=== PATIENT | female | born 1985 | race Caucasian/White ===

== ENCOUNTER 2020-09-04 11:22 | Inpatient (IN) | payer BC ==
[2020-09-04] MEDS ORDERED: Lidocaine 1% 50 ML MDV INJECT PRN (11:34)
[2020-09-04] MEDS ORDERED: Butorphanol 1 MG/ML SDV IVPUSH PRN (11:34)
[2020-09-04] MEDS ORDERED: Ondansetron 4 MG/2 ML SDV IVPUSH PRN (11:34)
[2020-09-04] MEDS ORDERED: Ampicillin 2 GM in Sodium Chloride 0.9% 100 ML IV ONE (11:34)
[2020-09-04] MEDS ORDERED: Sodium Chloride 0.9% 2.5 ML Syringe FLUSH PRN (11:34)
[2020-09-04] MEDS ORDERED: Sodium Chloride 0.9% 10 ML SDV IV PRN (11:34)
[2020-09-04] MEDS ORDERED: Misoprostol 200 MCG Tab PO PRN (11:34)
[2020-09-04] MEDS ORDERED: Water For Irrigation,Sterile 1,000 ML Container IRR PRN (11:34)
[2020-09-04] MEDS ORDERED: Methylergonovine 0.2 MG/1 ML Amp IM PRN (11:34)
[2020-09-04] MEDS ORDERED: Tranexamic Acid 1,000 MG in Sodium Chloride 0.9% 100 ML IV PRN (11:34)
[2020-09-04] MEDS ORDERED: Carboprost Tromethamine 250 MCG/1 ML Amp IM PRN (11:34)
[2020-09-04] MEDS ORDERED: Sodium Chloride 0.9% 10 ML Syringe FLUSH PRN (11:34)
[2020-09-04] MEDS ORDERED: Misoprostol 25 MCG (1/4 of 100 MCG) Tab VAG PRN (11:38)
[2020-09-04] MEDS ORDERED: Terbutaline 1 MG/ML SDV SUBCUT PRN (11:38)
[2020-09-04] MEDS ORDERED: Oxytocin/0.9 % Sodium Chloride 30 UNIT/500 ML BAG IV SCH ×2 (11:45)
[2020-09-04] MEDS ORDERED: Lactated Ringers 1,000 ML IV SCH (11:45)
[2020-09-04] MEDS: Ampicillin 1 GM in Sodium Chloride 0.9% 50 ML IV STA ×2 (17:02→17:10)
[2020-09-04] MEDS ORDERED: Ampicillin 1 GM in Sodium Chloride 0.9% 50 ML IV SCH (17:15)
[2020-09-04] MEDS ORDERED: Bupivicaine/fentaNYL/NS 0 ML ONE (17:59)
[2020-09-04] MEDS ORDERED: Ropivacaine 0.2% PF 2 MG/ML 20 ML SDV ONE (17:59)
--- NOTE | 2020-09-04 18:24 | PCM.PREANE ---
Preanesthetic Assessment - Procedure Proposed Procedure: labor epidural - Anesthesia/Transfusion/Family Hx Anesthesia History: Prior Anesthesia Without Reaction Family History of Anesthesia Reaction: No Transfusion History: No Prior Transfusion(s) - Review of Systems General: No Symptoms Pulmonary: No Symptoms Cardiovascular: No Symptoms Gastrointestinal: No Symptoms Neurological: No Symptoms Other: Reports: None - Physical Assessment Height: 5 ft 10 in Weight: 83.915 kg ASA Class: 2 Mental Status: Alert & Oriented x3 Airway Class: Mallampati = 1 Dentition: Reports: Normal Dentition Thyro-Mental Finger Breadths: 3 Mouth Opening Finger Breadths: 3 ROM/Head Extension: Full Lungs: Clear to Auscultation, Normal Respiratory Effort Cardiovascular: Regular Rate, Regular Rhythm - Lab Values: Laboratory Last Values WBC 11.22 K/uL (4.0-11.0) H 09/04/20 12:10 RBC 4.23 M/uL (4.30-5.90) L 09/04/20 12:10 Hgb 13.0 g/dL (12.0-16.0) 09/04/20 12:10 Hct 38.3 % (36.0-46.0) 09/04/20 12:10 MCV 90.5 fL (80.0-98.0) 09/04/20 12:10 MCH 30.7 pg (27.0-32.0) 09/04/20 12:10 MCHC 33.9 g/dL (31.0-37.0) 09/04/20 12:10 RDW Std Deviation 42.5 fl (28.0-62.0) 09/04/20 12:10 RDW Coeff of [place] 13 % (11.0-15.0) 09/04/20 12:10 Plt Count 216 K/uL (150-400) 09/04/20 12:10 MPV 11.10 fL (7.40-12.00) 09/04/20 12:10 Nucleated RBC % 0.0 /100WBC 09/04/20 12:10 Nucleated RBCs # 0 K/uL 09/04/20 12:10 Blood Type O POSITIVE 09/04/20 12:10 Antibody Screen NEGATIVE 09/04/20 12:10 - Allergies Allergies/Adverse Reactions: Allergies Allergy/AdvReac Type Severity Reaction Status Date / Time erythromycin base Allergy Unknown Other Verified 09/04/20 11:32 - Blood Blood Available: Yes Product(s) Available: PRBC - Anesthesia Plan Pre-Op Medication Ordered: None - Acknowledgements Anesthesia Type Planned: Epidural Pt an Appropriate Candidate for the Planned Anesthesia: Yes Alternatives and Risks of Anesthesia Discussed w Pt/Guardian: Yes Pt/Guardian Understands and Agrees with Anesthesia Plan: Yes PreAnesthesia Questionnaire - Past Health History Medical/Surgical History: Denies Medical/Surgical History Other OB/BYN History: Leep; D&C - Infectious Disease History Infectious Disease History: Reports: Human Papilloma Virus (HPV) - SUBSTANCE USE Tobacco Use Status *Q: Never Tobacco User Second Hand Smoke Exposure: No Recreational Drug Use History: No - CURRENT (IN HOUSE) MEDS Current Meds: Current Medications Butorphanol Tartrate (Stadol) 1 mg IVPUSH Q1H PRN PRN Reason: Pain Last Admin: 09/04/20 16:42 Dose: 1 mg Documented by: Carboprost Tromethamine (Hemabate Ds) 250 mcg IM ASDIRECTED PRN PRN Reason: Post Hemorrhage Oxytocin/Sodium Chloride (Oxytocin 30 Unit/500 Ml-Ns) 30 unit in 500 mls @ 999 mls/hr IV TITRATE ALMITA Tranexamic Acid 1,000 mg/ (Sodium Chloride) 110 mls @ 660 mls/hr IV ONETIME PRN PRN Reason: Bleeding Lactated Ringer's (Ringers, Lactated) 1,000 mls @ 150 mls/hr IV ASDIRECTED ALIMTA Last Admin: 09/04/20 12:32 Dose: 150 mls/hr Documented by: Oxytocin/Sodium Chloride (Oxytocin 30 Unit/500 Ml-Ns) 30 unit in 500 mls @ 2 mls/hr IV TITRATE ALMITA; Protocol Last Titration: 09/04/20 17:42 Dose: 1 munits/min, 1 mls/hr Documented by: Ampicillin Sodium 1 gm/ Sodium (Chloride) 50 mls @ 100 mls/hr IV Q4H ALMITA Lidocaine HCl (Xylocaine 1%) 50 ml INJECT ONETIME PRN PRN Reason: Laceration repair Methylergonovine Maleate (Methergine) 0.2 mg IM ASDIRECTED PRN PRN Reason: Post Hemorrhage Misoprostol (Cytotec) 200 mcg PO ONETIME PRN PRN Reason: Post Hemorrhage Misoprostol (Cytotec) 25 mcg VAG ONETIME PRN PRN Reason: Cervical Ripening Last Admin: 09/04/20 12:32 Dose: 25 mcg Documented by: Ondansetron HCl (Zofran) 4 mg IVPUSH Q4H PRN PRN Reason: Nausea/Vomiting Sodium Chloride (Saline Flush) 10 ml FLUSH ASDIRECTED PRN PRN Reason: Keep Vein Open Sodium Chloride (Saline Flush) 2.5 ml FLUSH ASDIRECTED PRN PRN Reason: Keep Vein Open Sodium Chloride (Normal Saline) 10 ml IV ASDIRECTED PRN PRN Reason: IV Use Sterile Water (Sterile Water For Irrigation) 1,000 ml IRR ASDIRECTED PRN PRN Reason: delivery Terbutaline Sulfate (Brethine) 0.25 mg SUBCUT ASDIRECTED PRN PRN Reason: Tacysystole Discontinued Medications Ampicillin Sodium 2 gm/ Sodium (Chloride) 100 mls @ 200 mls/hr IV ONETIME ONE Stop: 09/04/20 12:03 Last Admin: 09/04/20 12:32 Dose: 200 mls/hr Documented by: Ampicillin Sodium 1 gm/ Sodium (Chloride) 50 mls @ 100 mls/hr IV Q4H STA Stop: 09/04/20 17:11 Last Admin: 09/04/20 17:10 Dose: 100 mls/hr Documented by: Fentanyl/Bupivacaine HCl (Fentanyl/Bupivacaine/Ns 2 Mcg-0.125% 250 Ml) Confirm Administered Dose 250 mls @ as directed .ROUTE .STK-MED ONE Stop: 09/04/20 18:00 Ropivacaine (Naropin 0.2%) Confirm Administered Dose 20 ml .ROUTE .STK-MED ONE Stop: 09/04/20 18:00
[2020-09-04] MEDS ORDERED: Ibuprofen 400 MG Tab PO PRN (20:03)
[2020-09-04] MEDS ORDERED: Lanolin 100% Cream 7 GM Tube TOP PRN (20:03)
[2020-09-04] MEDS ORDERED: Witch Hazel Medicated Pads 40/Jar TOP PRN (20:03)
[2020-09-04] MEDS ORDERED: Bisacodyl 10 MG Supp RECTAL PRN (20:03)
[2020-09-04] MEDS ORDERED: Acetaminophen 500 MG Tab PO PRN ×2 (20:03)
[2020-09-04] MEDS ORDERED: Docusate Sodium 100 MG Cap PO PRN (20:03)
[2020-09-04] MEDS ORDERED: Benzocaine/Menthol 20%-0.5% Spray 78 GM Cannister TOP PRN (20:03)
[2020-09-04] MEDS ORDERED: oxyCODONE 5 MG Tab PO PRN (20:03)
--- NOTE | 2020-09-04 20:11 | PCM.OPNOTE ---
- General Post-Op/Procedure Note Date of Surgery/Procedure: 09/04/20 Operative Procedure(s): /1st degree labial laceration repaired Findings: Viable female APGARs 8, 9 weight 3020 gm. Spontaneous delivery intact placenta with 3V cord Pre Op Diagnosis: 40 week IUP. IUGR symmetrical Post-Op Diagnosis: Same Anesthesia Technique: Epidural Primary Surgeon: Christen Watters EBL in mLs: 250 Complications: none known Condition: Good Free Text/Narrative:: Intake & Output Dictation [id number] 09/04/20 09/04/20 09/04/20 06:59 14:59 22:59 Intake Total 100 2050 Balance 100 2049
--- NOTE | 2020-09-04 21:03 | OR ---
SURGEON: Christen Watters M.D. DATE OF PROCEDURE: 09/04/2020 PREOPERATIVE DIAGNOSES: 1. Forty-week intrauterine . 2. Symmetrical intrauterine growth restriction. POSTOPERATIVE DIAGNOSES: 1. Forty-week intrauterine . 2. Symmetrical intrauterine growth restriction. PROCEDURES: 1. Spontaneous vaginal delivery. 2. First-degree labial laceration repair. PRIMARY SURGEON: Christen Watters M.D. ANESTHESIA: Epidural. ESTIMATED BLOOD LOSS: 200 mL. FINDINGS: Viable female. scores 8 at one minute and 9 at five minutes. Weight of 3020 g. Spontaneous delivery, intact placenta, 3-vessel cord. DISPOSITION: Infant to nursery, and mom in [facility]. PROCEDURE IN DETAIL: Ying is a 35-year-old, G1, P0, at 40 weeks gestational age, who was admitted on the early afternoon of 08/2020 for scheduled induction of labor due to suspected symmetrical intrauterine growth restriction. She is group B beta strep positive. Therefore, she was admitted and routine labs were drawn. IV hydration was initiated. COVID is negative. Group B beta strep prophylaxis was initiated. The patient underwent Cytotec ripening, and within a couple of hours of receiving the first dose, a cervical balloon was also placed as she has had a history of LEEP to help reduce the scar tissue along the cervical os. The patient responded nicely to this, and with the next hour she had spontaneous rupture of membranes, clear fluid was noted, and became increasingly uncomfortable with contractions. She underwent Pitocin augmentation, never received more than 2 milliunits, and continued to progress more rapidly thereafter. She extruded the balloon, was found to be 3 cm and 90% effaced, and -2 station. Within the next couple of hours, she was feeling increasing pressure and discomfort after undergoing an epidural, and on examination was found to be complete 100% effaced, 0 station. Began pushing efforts. Pushed readily for the next approximately 20 minutes, was able to deliver the head to a +3 station. I was called for delivery. Upon my arrival, the patient was placed in modified dorsal lithotomy position, prepped and draped in the usual aseptic manner. Continued with pushing efforts, was able to satisfactorily push and deliver 's head atraumatically spontaneously, followed by anterior shoulder, posterior shoulder, and remainder of the body without difficulty. The 's oropharynx and nares were bulb suctioned. The infant was crying vigorously with good tone. She was handed off to her mother with attending nursing staff at nursing staff at her side. After delayed cord was clamped x2 and cut, cord arterial, cord venous, cord blood sampling was obtained light pressure was applied, while the placenta was delivered spontaneously intact. Vigorous fundal uterine massage was then applied while 30 units Pitocin was delivered in 500 mL of fluid. Upon inspection of cervix, vaginal sidewall, and perineum, there was found to bilateral first-degree labial laceration, repaired using 3-0 Vicryl in a continuous running fashion. Hemostasis appeared evident. Uterus remained firm. Sponge count, instrument count, needle count was correct. The patient will remain in LDRP, and infant nursery. FANTA BURT /[id number]
[2020-09-04] MEDS: Ibuprofen 800 MG Tab PO PRN (22:16)
[2020-09-05] MEDS: Ibuprofen 800 MG Tab PO PRN ×3 (07:03→22:20)
--- NOTE | 2020-09-05 10:38 | PCM.PNPP ---
- General Info Date of Service: 09/05/20 Subjective Update: Patient doing. Cramping pain intermittently, responds to Ibuprofen. Functional Status: Reports: Pain Controlled, Tolerating Diet, Ambulating, Urinating - Review of Systems General: Reports: No Symptoms HEENT: Reports: No Symptoms Pulmonary: Reports: No Symptoms Cardiovascular: Reports: No Symptoms Gastrointestinal: Reports: No Symptoms Genitourinary: Reports: No Symptoms Musculoskeletal: Reports: No Symptoms Skin: Reports: No Symptoms Neurological: Reports: No Symptoms Psychiatric: Reports: No Symptoms - Patient Data Vital Signs - Most Recent: Last Vital Signs Temp 36.4 C 09/05/20 04:37 Pulse 79 09/05/20 07:00 Resp 17 09/05/20 07:00 BP 120/70 09/05/20 07:00 Pulse Ox 97 09/05/20 07:00 Weight - Most Recent: 83.915 kg I&O - Last 24 Hours: Intake & Output 09/04/20 09/05/20 09/05/20 22:59 06:59 14:59 Intake Total 2049 Balance 2049 Lab Results - Last 24 Hours: Laboratory Results - last 24 hr 09/04/20 09/04/20 09/04/20 Range/Units 12:10 12:10 19:43 WBC 11.22 H (4.0-11.0) K/uL RBC 4.23 L (4.30-5.90) M/uL Hgb 13.0 (12.0-16.0) g/dL Hct 38.3 (36.0-46.0) % MCV 90.5 (80.0-98.0) fL MCH 30.7 (27.0-32.0) pg MCHC 33.9 (31.0-37.0) g/dL RDW Std Deviation 42.5 (28.0-62.0) fl RDW Coeff of [place] 13 (11.0-15.0) % Plt Count 216 (150-400) K/uL MPV 11.10 (7.40-12.00) fL Nucleated RBC % 0.0 /100WBC Nucleated RBCs # 0 K/uL Cord ABG pH 7.258 (7.18-7.38) Cord ABG Base Excess -7 (-10--2) Cord VBG pH 7.248 L (7.25-7.45) Cord VBG Base Excess -8 (-10--2) Blood Type O POSITIVE Antibody Screen NEGATIVE 09/05/20 Range/Units 06:10 WBC (4.0-11.0) K/uL RBC (4.30-5.90) M/uL Hgb 12.1 (12.0-16.0) g/dL Hct 36.5 (36.0-46.0) % MCV (80.0-98.0) fL MCH (27.0-32.0) pg MCHC (31.0-37.0) g/dL RDW Std Deviation (28.0-62.0) fl RDW Coeff of [place] (11.0-15.0) % Plt Count (150-400) K/uL MPV (7.40-12.00) fL Nucleated RBC % /100WBC Nucleated RBCs # K/uL Cord ABG pH (7.18-7.38) Cord ABG Base Excess (-10--2) Cord VBG pH (7.25-7.45) Cord VBG Base Excess (-10--2) Blood Type Antibody Screen Med Orders - Current: Current Medications Acetaminophen (Tylenol Extra Strength) 500 mg PO Q4H PRN PRN Reason: Pain Acetaminophen (Tylenol Extra Strength) 1,000 mg PO Q4H PRN PRN Reason: Pain Benzocaine/Menthol (Dermoplast Pain Relief 20%-0.5% [place]) 78 gm TOP ASDIRECTED PRN PRN Reason: Perineal Comfort Measure Last Admin: 09/04/20 22:18 Dose: 1 can Documented by: Bisacodyl (Dulcolax) 10 mg RECTAL ONETIME PRN PRN Reason: Constipation Carboprost Tromethamine (Hemabate Ds) 250 mcg IM ASDIRECTED PRN PRN Reason: Post Hemorrhage Docusate Sodium (Colace) 100 mg PO BID PRN PRN Reason: Constipation Emollient Ointment (Lansinoh Hpa) 0 gm TOP ASDIRECTED PRN PRN Reason: Sore Nipples Last Admin: 09/04/20 22:15 Dose: 7 gm Documented by: Oxytocin/Sodium Chloride (Oxytocin 30 Unit/500 Ml-Ns) 30 unit in 500 mls @ 999 mls/hr IV TITRATE ALMITA Tranexamic Acid 1,000 mg/ (Sodium Chloride) 110 mls @ 660 mls/hr IV ONETIME PRN PRN Reason: Bleeding Lactated Ringer's (Ringers, Lactated) 1,000 mls @ 150 mls/hr IV ASDIRECTED ALMITA Last Admin: 09/04/20 12:32 Dose: 150 mls/hr Documented by: Oxytocin/Sodium Chloride (Oxytocin 30 Unit/500 Ml-Ns) 30 unit in 500 mls @ 2 mls/hr IV TITRATE ALMITA; Protocol Last Titration: 09/04/20 17:42 Dose: 1 munits/min, 1 mls/hr Documented by: Ibuprofen (Motrin) 400 mg PO Q4H PRN PRN Reason: Pain Ibuprofen (Motrin) 800 mg PO Q6H PRN PRN Reason: Pain Last Admin: 09/05/20 07:03 Dose: 800 mg Documented by: Methylergonovine Maleate (Methergine) 0.2 mg IM ASDIRECTED PRN PRN Reason: Post Hemorrhage Misoprostol (Cytotec) 200 mcg PO ONETIME PRN PRN Reason: Post Hemorrhage Ondansetron HCl (Zofran) 4 mg IVPUSH Q4H PRN PRN Reason: Nausea/Vomiting Oxycodone HCl (Oxycodone) 5 mg PO Q2H PRN PRN Reason: Pain Sodium Chloride (Saline Flush) 10 ml FLUSH ASDIRECTED PRN PRN Reason: Keep Vein Open Sodium Chloride (Saline Flush) 2.5 ml FLUSH ASDIRECTED PRN PRN Reason: Keep Vein Open Sodium Chloride (Normal Saline) 10 ml IV ASDIRECTED PRN PRN Reason: IV Use Sterile Water (Sterile Water For Irrigation) 1,000 ml IRR ASDIRECTED PRN PRN Reason: delivery Witch Elida (Tucks) 1 pad TOP ASDIRECTED PRN PRN Reason: comfort care Last Admin: 09/04/20 22:17 Dose: 1 tub Documented by: Discontinued Medications Butorphanol Tartrate (Stadol) 1 mg IVPUSH Q1H PRN PRN Reason: Pain Last Admin: 09/04/20 16:42 Dose: 1 mg Documented by: Ampicillin Sodium 2 gm/ Sodium (Chloride) 100 mls @ 200 mls/hr IV ONETIME ONE Stop: 09/04/20 12:03 Last Admin: 09/04/20 12:32 Dose: 200 mls/hr Documented by: Ampicillin Sodium 1 gm/ Sodium (Chloride) 50 mls @ 100 mls/hr IV Q4H STA Stop: 09/04/20 17:11 Last Admin: 09/04/20 17:10 Dose: 100 mls/hr Documented by: Ampicillin Sodium 1 gm/ Sodium (Chloride) 50 mls @ 100 mls/hr IV Q4H ALMITA Fentanyl/Bupivacaine HCl (Fentanyl/Bupivacaine/Ns 2 Mcg-0.125% 250 Ml) Confirm Administered Dose 250 mls @ as directed .ROUTE .STK-MED ONE Stop: 09/04/20 18:00 Lidocaine HCl (Xylocaine 1%) 50 ml INJECT ONETIME PRN PRN Reason: Laceration repair Misoprostol (Cytotec) 25 mcg VAG ONETIME PRN PRN Reason: Cervical Ripening Last Admin: 09/04/20 12:32 Dose: 25 mcg Documented by: Ropivacaine (Naropin 0.2%) Confirm Administered Dose 20 ml .ROUTE .STK-MED ONE Stop: 09/04/20 18:00 Terbutaline Sulfate (Brethine) 0.25 mg SUBCUT ASDIRECTED PRN PRN Reason: Tacysystole - Infant Interaction Infant Disposition, : [place] to Nursery Infant Feeding: Breastfed ; Nursed Well Support Person: Significant Other - Recovery Exam Fundal Tone: Firm Fundal Level: 1 Fingerbreadths Below Umbilicus Fundal Placement: Midline Lochia Amount: Scant Lochia Color: Rubra/Red Bladder Status: Voiding Urinary Elimination: Voided - Exam General: Alert, Oriented Neck: Supple Lungs: Normal Respiratory Effort GI/Abdominal Exam: Soft, Non-Tender Extremities: No Pedal Edema Skin: Warm, Dry, Intact Neurological: No New Focal Deficit Psy/Mental Status: Alert, Normal Affect, Normal Mood - Problem List & Annotations (1) Vaginal delivery SNOMED Code(s): 980376374 Code(s): O80 - ENCOUNTER FOR FULL-TERM UNCOMPLICATED DELIVERY Status: Acute Current Visit: Yes - Problem List Review Problem List Initiated/Reviewed/Updated: Yes - Assessment Assessment:: 35yo P1 s/p at 40w0d, PPD#1 - Plan Plan:: Continue routine care. Encourage . Patient undecided if she would like discharge home today.
--- NOTE | 2020-09-05 13:26 | PCM48HPAN ---
Post Anesthesia Note - EVALUATION WITHIN 48HRS OF ANESTHETIC Vital Signs in Normal Range: Yes Patient Participated in Evaluation: Yes Respiratory Function Stable: Yes Airway Patent: Yes Cardiovascular Function Stable: Yes Hydration Status Stable: Yes Pain Control Satisfactory: Yes Nausea and Vomiting Control Satisfactory: Yes Mental Status Recovered: Yes Vital Signs: Last Vital Signs Temp 36.4 C 09/05/20 04:37 Pulse 79 09/05/20 07:00 Resp 17 09/05/20 07:00 BP 120/70 09/05/20 07:00 Pulse Ox 97 09/05/20 07:00
[2020-09-06] MEDS: Ibuprofen 800 MG Tab PO PRN (09:08)
--- NOTE | 2020-09-06 09:49 | PCM.PNPP ---
- General Info Date of Service: 09/06/20 Subjective Update: Patient reports mild cramping when . Minimal lochia. going better. Functional Status: Reports: Pain Controlled, Tolerating Diet, Ambulating, Urinating - Review of Systems General: Reports: No Symptoms HEENT: Reports: No Symptoms Pulmonary: Reports: No Symptoms Cardiovascular: Reports: No Symptoms Gastrointestinal: Reports: No Symptoms Genitourinary: Reports: No Symptoms Musculoskeletal: Reports: No Symptoms Skin: Reports: No Symptoms Neurological: Reports: No Symptoms Psychiatric: Reports: No Symptoms - Patient Data Vital Signs - Most Recent: Last Vital Signs Temp 36.4 C 09/06/20 09:20 Pulse 79 09/06/20 09:20 Resp 16 09/06/20 09:20 BP 116/63 09/06/20 09:20 Pulse Ox 96 09/06/20 09:20 Weight - Most Recent: 83.915 kg Med Orders - Current: Current Medications Acetaminophen (Tylenol Extra Strength) 500 mg PO Q4H PRN PRN Reason: Pain Acetaminophen (Tylenol Extra Strength) 1,000 mg PO Q4H PRN PRN Reason: Pain Benzocaine/Menthol (Dermoplast Pain Relief 20%-0.5% [place]) 78 gm TOP ASDIRECTED PRN PRN Reason: Perineal Comfort Measure Last Admin: 09/04/20 22:18 Dose: 1 can Documented by: Bisacodyl (Dulcolax) 10 mg RECTAL ONETIME PRN PRN Reason: Constipation Carboprost Tromethamine (Hemabate Ds) 250 mcg IM ASDIRECTED PRN PRN Reason: Post Hemorrhage Docusate Sodium (Colace) 100 mg PO BID PRN PRN Reason: Constipation Last Admin: 09/05/20 14:09 Dose: 100 mg Documented by: Emollient Ointment (Lansinoh Hpa) 0 gm TOP ASDIRECTED PRN PRN Reason: Sore Nipples Last Admin: 09/04/20 22:15 Dose: 7 gm Documented by: Oxytocin/Sodium Chloride (Oxytocin 30 Unit/500 Ml-Ns) 30 unit in 500 mls @ 999 mls/hr IV TITRATE ALMITA Tranexamic Acid 1,000 mg/ (Sodium Chloride) 110 mls @ 660 mls/hr IV ONETIME PRN PRN Reason: Bleeding Lactated Ringer's (Ringers, Lactated) 1,000 mls @ 150 mls/hr IV ASDIRECTED ALMITA Last Admin: 09/04/20 12:32 Dose: 150 mls/hr Documented by: Oxytocin/Sodium Chloride (Oxytocin 30 Unit/500 Ml-Ns) 30 unit in 500 mls @ 2 mls/hr IV TITRATE ALMITA; Protocol Last Titration: 09/04/20 17:42 Dose: 1 munits/min, 1 mls/hr Documented by: Ibuprofen (Motrin) 400 mg PO Q4H PRN PRN Reason: Pain Ibuprofen (Motrin) 800 mg PO Q6H PRN PRN Reason: Pain Last Admin: 09/06/20 09:08 Dose: 800 mg Documented by: Methylergonovine Maleate (Methergine) 0.2 mg IM ASDIRECTED PRN PRN Reason: Post Hemorrhage Misoprostol (Cytotec) 200 mcg PO ONETIME PRN PRN Reason: Post Hemorrhage Ondansetron HCl (Zofran) 4 mg IVPUSH Q4H PRN PRN Reason: Nausea/Vomiting Oxycodone HCl (Oxycodone) 5 mg PO Q2H PRN PRN Reason: Pain Sodium Chloride (Saline Flush) 10 ml FLUSH ASDIRECTED PRN PRN Reason: Keep Vein Open Sodium Chloride (Saline Flush) 2.5 ml FLUSH ASDIRECTED PRN PRN Reason: Keep Vein Open Sodium Chloride (Normal Saline) 10 ml IV ASDIRECTED PRN PRN Reason: IV Use Sterile Water (Sterile Water For Irrigation) 1,000 ml IRR ASDIRECTED PRN PRN Reason: delivery Witch Elida (Tucks) 1 pad TOP ASDIRECTED PRN PRN Reason: comfort care Last Admin: 09/04/20 22:17 Dose: 1 tub Documented by: Discontinued Medications Butorphanol Tartrate (Stadol) 1 mg IVPUSH Q1H PRN PRN Reason: Pain Last Admin: 09/04/20 16:42 Dose: 1 mg Documented by: Ampicillin Sodium 2 gm/ Sodium (Chloride) 100 mls @ 200 mls/hr IV ONETIME ONE Stop: 09/04/20 12:03 Last Admin: 09/04/20 12:32 Dose: 200 mls/hr Documented by: Ampicillin Sodium 1 gm/ Sodium (Chloride) 50 mls @ 100 mls/hr IV Q4H STA Stop: 09/04/20 17:11 Last Admin: 09/04/20 17:10 Dose: 100 mls/hr Documented by: Ampicillin Sodium 1 gm/ Sodium (Chloride) 50 mls @ 100 mls/hr IV Q4H ALMITA Fentanyl/Bupivacaine HCl (Fentanyl/Bupivacaine/Ns 2 Mcg-0.125% 250 Ml) Confirm Administered Dose 250 mls @ as directed .ROUTE .STK-MED ONE Stop: 09/04/20 18:00 Lidocaine HCl (Xylocaine 1%) 50 ml INJECT ONETIME PRN PRN Reason: Laceration repair Misoprostol (Cytotec) 25 mcg VAG ONETIME PRN PRN Reason: Cervical Ripening Last Admin: 09/04/20 12:32 Dose: 25 mcg Documented by: Ropivacaine (Naropin 0.2%) Confirm Administered Dose 20 ml .ROUTE .STK-MED ONE Stop: 09/04/20 18:00 Terbutaline Sulfate (Brethine) 0.25 mg SUBCUT ASDIRECTED PRN PRN Reason: Tacysystole - Interaction Infant Disposition, : in Room with Family Infant Interaction: Holding Infant Infant Feeding: Bottle Fed Infant, Breastfed Infant; Nursed Well Support Person: Significant Other - Recovery Exam Fundal Tone: Firm Fundal Level: 2 Fingerbreadths Below Umbilicus Fundal Placement: Midline Lochia Amount: Scant Lochia Color: Rubra/Red Perineum Description: Intact, Minimal Bruising/Swelling Episiotomy/Laceration: Approximated Bladder Status: Voiding Urinary Elimination: Voided - Exam General: Alert, Oriented Neck: Supple Lungs: Normal Respiratory Effort Cardiovascular: Regular Rhythm GI/Abdominal Exam: Soft, Non-Tender, No Distention Extremities: No Pedal Edema Skin: Warm, Dry, Intact Neurological: No New Focal Deficit Psy/Mental Status: Alert, Normal Affect, Normal Mood - Problem List & Annotations (1) Vaginal delivery SNOMED Code(s): 705188359 Code(s): O80 - ENCOUNTER FOR FULL-TERM UNCOMPLICATED DELIVERY Status: Acute Current Visit: Yes - Problem List Review Problem List Initiated/Reviewed/Updated: Yes - My Orders Last 24 Hours: My Active Orders 09/06/20 09:44 Ready for Discharge [RC] PER UNIT ROUTINE - Assessment Assessment:: 35yo P1 s/p at 40w0d, PPD#2 - Plan Plan:: Doing better with today. Reviewed discharge precautions, discharge home today.
== END 2020-09-06 12:02 | disposition home or self-care (01) | DRG 560 ==
LOC: MW.OBCHECK 11:22 → MW.OB 11:23 → MW.OBCHECK 11:33 → MW.OB 11:34 → OBSVTOIN 19:43 → MW.OB 23:57
PROVIDERS: ADMIT Obstetrics & Gynecology; ATTEND Obstetrics & Gynecology
PROC: 10E0XZZ Delivery of Products of Conception, External Approach (ICD-10-PCS; principal; 2020-09-04)
PROC: 0HQ9XZZ Repair Perineum Skin, External Approach (ICD-10-PCS; 2020-09-04)
PROC: 3E0R3BZ Introduction of Anesthetic Agent into Spinal Canal, Percutaneous Approach (ICD-10-PCS; 2020-09-04)
PROC: 00HU33Z Insertion of Infusion Device into Spinal Canal, Percutaneous Approach (ICD-10-PCS; 2020-09-04)
DX: O36.5930 Maternal care for other known or suspected poor fetal growth, third trimester, not applicable or unspecified (principal); Z37.0 Single live birth; O48.0 Post-term pregnancy; Z3A.40 40 weeks gestation of pregnancy; O70.0 First degree perineal laceration during delivery; O99.824 Streptococcus B carrier state complicating childbirth
CPT/HCPCS: 01967; 36415; 59025; 59409; 82803; 85014; 85018; 85027; 86592; 86850; 86900; 86901; A9270-GY; J0290; J0595; J2590; J2795; J3010; J7050; J7120

== ENCOUNTER 2025-06-22 10:26 | Inpatient (IN) | payer BC ==
[2025-06-22] MEDS ORDERED: Ondansetron 4 MG/2 ML SDV IVPUSH PRN (11:12)
[2025-06-22] MEDS ORDERED: Carboprost Tromethamine 250 MCG/1 mL Vial IM PRN (11:12)
[2025-06-22] MEDS ORDERED: Water For Irrigation,Sterile 1,000 ML Container IRR PRN (11:12)
[2025-06-22] MEDS ORDERED: Sodium Chloride 0.9% 10 ML Syringe FLUSH PRN (11:12)
[2025-06-22] MEDS ORDERED: Sodium Chloride 0.9% 2.5 ML Syringe FLUSH PRN (11:12)
[2025-06-22] MEDS ORDERED: Nalbuphine 10 MG/1 ML Vial IVPUSH PRN (11:12)
[2025-06-22] MEDS ORDERED: Butorphanol 1 MG/ML SDV IVPUSH PRN (11:12)
[2025-06-22] MEDS ORDERED: Lactated Ringers 1,000 ML IV SCH (11:15)
[2025-06-22] MEDS ORDERED: Oxytocin/0.9 % Sodium Chloride 30 UNIT/500 ML BAG IV SCH (11:15)
[2025-06-22] MEDS ORDERED: Terbutaline 1 MG/ML SDV SUBCUT PRN (11:43)
[2025-06-22 11:46] LABS: MEAN PLATELET VOLUME 11.9 fL (9.4-12.3); NRBC ABSOLUTE 0.00 K/uL (0.00-0.02); NRBC PERCENT 0.0 /100WBC (0.0-0.2); PLATELET COUNT,PLT 177 K/uL (150-400); RED BLOOD CELL COUNT 4.48 M/uL (4.10-5.30); WHITE BLOOD CELL COUNT,WBC 9.07 K/uL (3.9-11.3)
[2025-06-22] MEDS: Misoprostol 25 MCG (1/4 of 100 MCG) Tab VAG PRN (12:39)
[2025-06-22] MEDS: Oxytocin/0.9 % Sodium Chloride 30 UNIT/500 ML BAG IV SCH (17:00)
[2025-06-22] MEDS ORDERED: dexmedeTOMIDine HCl 200 MCG/2 ML SDV ONE (18:55)
[2025-06-22] MEDS ORDERED: Ropivacaine HCl/PF 200 ML ONE (18:55)
[2025-06-22] MEDS: Ropivacaine HCl/PF 400 MG in Premix Bag 1 BAG EPIDUR SCH (19:10)
[2025-06-22] MEDS ORDERED: ePHEDrine 50 MG/ML SDV IVPUSH PRN (19:13)
[2025-06-22] MEDS ORDERED: dexmedeTOMIDine HCl 200 MCG/2 ML SDV EPIDUR SCH (19:15)
[2025-06-22 20:08] LABS: PH,UMBILICAL ARTERIAL 7.36 (7.18-7.38); PH,UMBILICAL VENOUS 7.4 (7.25-7.45)
[2025-06-22] MEDS ORDERED: Aluminum Hydroxide/Magnesium Hydroxide/Simethicone Susp 30 ML Cup PO PRN (20:24)
[2025-06-22] MEDS: Lanolin 100% Cream 7 GM Tube TOP PRN (23:48)
[2025-06-22] MEDS: Witch Hazel Medicated Pads 40/Jar TOP PRN (23:49)
[2025-06-22] MEDS: Benzocaine/Menthol 20%-0.5% Spray 78 GM Cannister TOP PRN (23:49)
[2025-06-23 05:50] LABS: BASOPHILS ABSOLUTE AUTO 0.02 K/uL (0.00-0.20); BASOPHILS PERCENT AUTO 0.2 % (0.0-1.0); EOSINOPHILS ABSOLUTE AUTO 0.03 K/uL (0.00-0.45); EOSINOPHILS PERCENT AUTO 0.2 % (0.0-6.0); IMMATURE GRAN ABSOLUTE AUTO 0.04 K/uL (0.00-0.05); IMMATURE GRAN PERCENT AUTO 0.3 % (0.0-0.4); LYMPHOCYTES ABSOLUTE AUTO 2.00 K/uL (1.00-4.80); LYMPHOCYTES PERCENT AUTO 15.6 % (24.0-44.0); MEAN PLATELET VOLUME 11.6 fL (9.4-12.3); MONOCYTES ABSOLUTE AUTO 1.04 K/uL (0.00-0.80); MONOCYTES PERCENT AUTO 8.1 % (0.0-8.0); NEUTROPHILS ABSOLUTE AUTO 9.68 K/uL (1.80-7.70); NEUTROPHILS PERCENT AUTO 75.6 % (41.0-71.0); NRBC ABSOLUTE 0.00 K/uL (0.00-0.02); NRBC PERCENT 0.0 /100WBC (0.0-0.2); PLATELET COUNT,PLT 157 K/uL (150-400); RED BLOOD CELL COUNT 4.02 M/uL (4.10-5.30); WHITE BLOOD CELL COUNT,WBC 12.81 K/uL (3.9-11.3)
== END 2025-06-23 22:10 | disposition home or self-care (01) | DRG 560 ==
LOC: MW.OBCHECK 10:26 → MW.OB 11:12 → OBSVTOIN 19:26 → MW.OB 19:26
PROVIDERS: ADMIT Obstetrics & Gynecology; ATTEND Obstetrics & Gynecology
PROC: 10E0XZZ Delivery of Products of Conception, External Approach (ICD-10-PCS; principal; 2025-06-22)
PROC: 3E0R3BZ Introduction of Anesthetic Agent into Spinal Canal, Percutaneous Approach (ICD-10-PCS; 2025-06-22)
PROC: 3E0DXGC Introduction of Other Therapeutic Substance into Mouth and Pharynx, External Approach (ICD-10-PCS; 2025-06-22)
PROC: 0UQMXZZ Repair Vulva, External Approach (ICD-10-PCS; 2025-06-22)
DX: O48.0 Post-term pregnancy (principal); Z3A.40 40 weeks gestation of pregnancy; Z37.0 Single live birth; Z88.8 Allergy status to other drugs, medicaments and biological substances; Z79.899 Other long term (current) drug therapy; O71.82 Other specified trauma to perineum and vulva; Z67.40 Type O blood, Rh positive
CPT/HCPCS: 01967; 36415; 59025; 59409; 82803; 85025; 85027; 86592; 86850; 86900; 86901; A9270-GY; J2371; J2590; J2795